=== PATIENT | female | born 1935 | race Caucasian/White ===

== ENCOUNTER 2019-06-16 18:43 | Emergency (ER) | payer MEDICARE, SELFPAY ==
[2019-06-16] VITALS (11 sets, daily range): BP systolic 90–143; BP diastolic 48–82; PULSE 27–107; RESP 16–25; TEMP 36.5–37.2; O2SAT 18–100
--- NOTE | ~2019-06-16 | CT_ITS ---
CORRECTED REPORT Description changed to CT cervical spine wo con [id number] EXAMINATION: CT cervical spine wo con DATE: 06/16/2019 19:29 INDICATION: Neck pain TECHNIQUE: Computed tomography (CT) of the cervical spine was performed without intravenous contrast. The dose-length product (DLP) was 139.12 mGy-cm. Automated exposure control and iterative reconstruction technique were employed. COMPARISON: 09/10/2018 FINDINGS: There is no fracture, dislocation, or subluxation. The vertebral body heights and alignment are normal. There is mild loss of intervertebral disc space height throughout the cervical spine. The odontoid is intact. The prevertebral soft tissues are normal. There is moderate multilevel facet osteoarthritis. IMPRESSION: 1. Mild cervical spondylosis without acute findings or significant interval change. Reviewed, dictated and finalized at location A. HEONETTE OPERATOR MTDD IMPRESSION: 1. Mild cervical spondylosis without acute findings or significant interval michele nge.
--- NOTE | ~2019-06-16 | CT_ITS ---
EXAMINATION: CT brain wo con INDICATION: Head injury COMPARISON: 09/23/2018 TECHNIQUE: Standard unenhanced head CT. The dose-length product (DLP) was 605.33 mGy-cm. The mA was a djusted according to patient size. Iterative reconstruction technique was employed. FINDINGS: There is no acute intraparenchymal hemorrhage. No evidence of mass lesion. No evidence of a cute infarction. There is mild periventricular and subcortical hypodensity probably related to small vessel ischemic disease. There is mild prominence of the sulci and ventricles related to cerebral atr ophy. Intracranial calcified cerebral atherosclerosis is noted. There are no extra-axial collections. There is no mass effect or midline shift. Changes in the globes are likely from ocular lens surgery. The visualized sinuses and mastoid air cells are well aerated. IMPRESSION: 1. No acute intracranial abnormality. 2. Age related findings. Reviewed, dictated and finalized at location A. VIDEO EDITOR
--- NOTE | 2019-06-16 19:00 | ED.FALL ---
HPI - Fall General Chief Complaint: Fall Stated Complaint: fall Time Seen by Provider: 06/16/19 18:51 Source: patient, family and other (ER nurse) Mode of arrival: EMS Limitations: dementia History of Present Illness HPI Narrative: The pt is an 84 y/o female who presents to the ED, via EMS, c/o a fall. Pt presents from [place]. Per ER nurse, pt tumbled in the dining room at her fpc, striking her head on the counter. ER nurse states that the pt was complaining of left-sided headache, left hand pain, and left shoulder pain. Pt's family states that the pt typically has a low heart rate, but typically in the 30s. They state that the pt takes Eliquis, Amlodipine, and Benazepril. 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 Duran at [facility]. Her family states that the pt has a PMHx of dementia. The HPI is limited due to the pt's dementia. complaint: fall Fall from: standing Place fall occurred: fpc/SNF Context: tripped/slipped Location of injury: head Location of injury - extremities: Left: shoulder Associated symptoms (after fall): headache (Left-sided) and other (Left shoulder pain, left hand pain) Related Data Home Medications Medication Instructions Recorded Confirmed alprazolam 0.25 mg tablet 0.25 mg PO BID 05/06/19 amlodipine 2.5 mg tablet 2.5 mg PO DAILY 05/06/19 apixaban 5 mg tablet 5 mg PO BID 05/06/19 benazepril 20 mg tablet 20 mg PO DAILY 05/06/19 levothyroxine 100 mcg tablet 100 mcg PO DAILY 05/06/19 sotalol 80 mg tablet 40 mg PO BID tablet 05/06/19 Allergies Allergy/AdvReac Type Severity Reaction Status Date / Time No Known Allergies Allergy Verified 05/06/19 11:05 Review of Systems Review of Systems: ROS unobtainable: other (ROS limited due to the pt's dementia. ) Musculoskeletal: Musculoskeletal: Reports other (Left shoulder pain, left hand pain) Neurologic: Reports headache(s) (left-sided) and Reports other (Head injury) [facility] Past Medical History Medical History (Updated 06/16/19 @ 21:15 by Nader Meredith MD) A-fib Actinic keratosis Angina at rest Arthritis Bilateral cataracts Dementia HLD (hyperlipidemia) HTN (hypertension) Hypothyroidism Myocardial infarction Tear of meniscus of left knee UTI (urinary tract infection) Vertigo Surgical History Surgical History (Updated 06/16/19 @ 19:13 by Imer Roblero) H/O bilateral cataract extraction H/O cardiac catheterization H/O: hysterectomy History of appendectomy History of cholecystectomy S/P right knee arthroscopy Family History Family History (Updated 05/06/19 @ 11:09 by Tangela Monzon RN) Mother Cerebrovascular accident Social History Social History (Updated 06/16/19 @ 19:16 by Imer Roblero) Smoking status: Former smoker Tobacco type: cigarettes Alcohol intake: never Living arrangements: assisted living Additional living arrangements comments: Pt lives at [place]. Comments PCP: Dr. Alamo Cardiology: Dr. Duran Exam Const: General: no acute distress and alert HENMT: Head: normal to inspection Eyes: Pupils: Equal, round and reactive pupils present Neck: Neck: normal visual inspection Chest: Chest palpation & inspection: normal inspection of the chest Resp: Effort & Inspection: normal respiratory effort Auscultation: clear to auscultation bilaterally : Other: bradycardia Skin: General skin exam: normal color Neuro: General: moves all extremities, no meningeal signs and no focal motor deficits Extrem: General: normal to inspection Course Course Emergency Course: As per Dr. Ocasio recommended to start IV dopamine once a started IV dopamine at 2.5 the heart rate initially went up to 53 and then later to 103. Patient still remains asymptomatic here. I discussed with Dr. Snider who accepted the patient in transfer to the floor. Consultations Consultation #1: Discussed case with Dr. Ocasio, who accepted transfer to [place]
--- NOTE | 2019-06-16 19:05 | ECG_ITS ---
Measurements Intervals [place] Rate: 28 P: OR: 0 QRS: 93 QRSD: 129 T: 118 QT: 562 QTc: 384 Interpretive Statements ATRIAL FLUTTER WITH SLOW VENTRICULAR RESPONSE RIGHT AXIS DEVIATION RIGHT BUNDLE BRANCH BLOCK T WAVE ABNORMALITY- CONSIDER ANTERIOR ISCHEMIA ABNORMAL ECG Electronically Signed On 06-16-2019 20:10:33 HIM TECH by aMrvel [place] D.O.
--- NOTE | 2019-06-16 19:07 | PC.NURSE ---
Dr Murry made aware of patient's HR. Family reports her HR is normally in the 30's, sees cardiology at [facility]. Patient asymptomatic.
[2019-06-16 19:21] LABS: Basophils Percent Auto 0.4 % (0.2-1.2); Eosinophils Absolute Auto 0.1 K/mm3 (0-0.3); Eosinophils Percent Auto 1.2 % (0-4.4); Hematocrit 39.1 % (37.0-47.0); Hemoglobin 12.3 g/dL (12.0-15.0); Immature Granulocyte Absolute 0.03 K/mm3 (0.00-0.031); Immature Granulocyte Percent A 0.4 % (0-0.5); Lymphocytes Absolute Auto 1.33 K/mm3 (0.9-3.2); Lymphocytes Percent Auto 18.4 % (18.3-44.2); Mean Corpuscular HGB Conc 31.5 g/dl (32-36); Mean Corpuscular Volume 92.2 fl (80-100); Mean Platelet Volume 10.4 fl (7.4-10.4); Monocytes Absolute Auto 0.5 K/mm3 (0.1-0.6); Monocytes Percent Auto 6.5 % (2.6-8.5); Neutrophils Absolute Auto 5.3 K/mm3 (1.3-6.7); Neutrophils Percent Auto 73.1 % (45.5-73.1); Platelet Count Result 259 k/mm3 (150-375); Red Blood Count 4.24 M/mm3 (4.2-5.4); Red Cell Distribution Width 13.2 % (11.5-14.5); White Blood Count 7.2 K/mm3 (4.5-10.0)
[2019-06-16 19:33] LABS: Alanine Aminotransferase 15 U/L (4-35); Albumin Level 3.6 g/dL (3.5-5.1); Alkaline Phosphatase 78 U/L (38-126); Aspartate Amino Transferase 23 U/L (14-36); Bilirubin,Total 0.9 mg/dL (0.2-1.3); Blood Urea Nitrogen 29 mg/dL (7-17); Calcium 8.8 mg/dL (8.4-10.2); Carbon Dioxide 28 mmol/L (22-30); Chloride 102 mmol/L (98-107); Estimated CRCL calculation 35 ml/min; Estimated Glomerular Filt Rate 53; Glucose 132 mg/dL (65-105); Potassium 4.2 mmol/L (3.4-5.0); Sodium 140 mmol/L (137-145)
[2019-06-16] MEDS: SODIUM CHLORIDE 0.9% IV 1,000 ML 125 ML IV CONT (19:37)
[2019-06-16 19:45] LABS: Troponin I 0.019 ng/mL (0.000-0.034)
[2019-06-16] MEDS: DOPamine 400 MG/D5W 250 ML 400 MG/250 ML BAG 13.1 MG IV CONT (20:06)
--- NOTE | 2019-06-16 20:06 | PC.NURSE ---
Dopamine initiated at 5mcg/kg per verbal order from Dr Murry.
--- NOTE | 2019-06-16 20:46 | PC.NURSE ---
Dopamine decreased to 2.5mcg/kg per verbal order from Dr Murry.
--- NOTE | 2019-06-16 21:41 | PC.NURSE ---
Addendum entered by Jeni Cee 06/16/19 22:57: Raquel called with updated ETA....approximately 0030 Addendum entered by Jeni Cee 06/16/19 22:43: Raquel called with updated ETA...approximately 2300 Original Note: Called [facility] to transport patient to [facility], Rm [id number]...ETA 0100
[2019-06-17 00:01] VITALS: BP 124/67; PULSE 85; RESP 20
[2019-06-17 00:16] VITALS: BP 151/80; PULSE 92; RESP 22
[2019-06-17 00:46] VITALS: BP 143/79; PULSE 90; RESP 20; TEMP 36.3
== END 2019-06-17 01:00 | disposition short-term general hospital (02) ==
PROVIDERS: Emergency Provider Family Medicine; PCP Internal Medicine
DX: S09.90XA Unspecified injury of head, initial encounter (principal); I48.91 Unspecified atrial fibrillation; Z79.01 Long term (current) use of anticoagulants; F03.90 Unspecified dementia, unspecified severity, without behavioral disturbance, psychotic disturbance, mood disturbance, and anxiety; Z87.891 Personal history of nicotine dependence; M19.90 Unspecified osteoarthritis, unspecified site; E78.5 Hyperlipidemia, unspecified; I10 Essential (primary) hypertension; I25.2 Old myocardial infarction; Z87.440 Personal history of urinary (tract) infections; Z98.42 Cataract extraction status, left eye; Z98.41 Cataract extraction status, right eye; E03.9 Hypothyroidism, unspecified; W01.198A Fall on same level from slipping, tripping and stumbling with subsequent striking against other object, initial encounter
CPT/HCPCS: 36415; 70450; 72125; 72126; 80053; 84484; 85025; 93005; 96361; 96365; 99285; J1265; J7030; L0140; Q9967

== ENCOUNTER 2020-05-15 16:45 | Emergency (ER) | payer MEDICARE, SELFPAY ==
--- NOTE | ~2020-05-15 | CT_ITS ---
EXAMINATION: CT brain wo con DATE: 05/15/2020 17:50 INDICATION: Altered mental status post fall TECHNIQUE: Computed tomography (CT) of the head was performed without intravenous contrast. Sagittal and coronal reconstructions were performed. The mA was adjusted according to patient size. Iterative reconstruction technique was employed. The dose-length product was 681.00 mGy-cm. COMPARISON: head CT dated 06/16/2019 FINDINGS: No acute intracranial hemorrhage, acute infarction or abnormal extra axial fluid collection. There is moderate scattered white matter hypoattenuation consistent with chronic small vessel ischemic diseas e. Symmetric prominence of the sulci and ventricles consistent with mild to moderate age-appropriate diffuse cerebral volume loss. No mass/mass effect. Mucosal thickening the right ethmoid sinus with mi nimal posterior layering fluid in the right maxillary and right sphenoid sinuses. Changes of bilatera l intraocular lens replacement. The orbits and mastoid air cells are normal. IMPRESSION: 1. No acute intracranial process. 2. Stable age-related changes including mild to moderate diffuse volume loss and moderate scattered w michelle matter hypoattenuation consistent with chronic small vessel ischemic disease. Reviewed, dictated and finalized at location A. S AND BLOW MACHINE TENDER IMPRESSION: 1. No acute intracranial process. 2. Stable age-related changes including mild to moderate diffuse volume loss an d moderate scattered white matter hypoattenuation consistent with chronic small vessel ischemic disease.
[2020-05-15 16:46] VITALS: BP 156/83; PULSE 71; RESP 19; TEMP 36.4; O2SAT 97
--- NOTE | 2020-05-15 17:18 | ED.FALL ---
HPI - Fall General Chief Complaint: Fall Stated Complaint: FALLS/AMS Time Seen by Provider: 05/15/20 17:06 Source: family Mode of arrival: EMS Limitations: altered mental status and dementia History of Present Illness HPI Narrative: An 85-year-old woman presents to the emergency department with complaints of a fall in the skilled nursing. Patient is very demented at baseline unable to provide any meaningful history. Her son is present states that he was told she had a fall, noted that the skilled nursing thought she may have had a urinary tract infection and sent her in here for further evaluation. He does not know the details of the fall. He states that she has not been complaining of any pain to him. He does note that her dementia is advanced enough that she only occasionally recognizes him. Related Data Home Medications Medication Instructions Recorded Confirmed alprazolam 0.25 mg tablet 0.25 mg PO BID 05/06/19 amlodipine 2.5 mg tablet 2.5 mg PO DAILY 05/06/19 apixaban 5 mg tablet 5 mg PO BID 05/06/19 benazepril 20 mg tablet 20 mg PO DAILY 05/06/19 levothyroxine 100 mcg tablet 100 mcg PO DAILY 05/06/19 sotalol 80 mg tablet 40 mg PO BID tablet 05/06/19 acetaminophen 06/16/19 cholecalciferol (vitamin D3) 2,000 unit PO DAILY 06/16/19 cyanocobalamin (vitamin B-12) 1,000 mcg PO EVERY OTHER DAY 06/16/19 [Vitamin B-12] memantine mg 06/16/19 nitroglycerin mg 06/16/19 Allergies Allergy/AdvReac Type Severity Reaction Status Date / Time No Known Allergies Allergy Verified 06/16/19 22:04 Review of Systems Review of Systems: ROS unobtainable: Yes unobtainable due to mental status (Advanced dementia) [facility] Past Medical History Medical History A-fib Actinic keratosis Angina at rest Arthritis Bilateral cataracts Dementia HLD (hyperlipidemia) HTN (hypertension) Hypothyroidism Myocardial infarction Tear of meniscus of left knee UTI (urinary tract infection) Vertigo Surgical History Surgical History H/O bilateral cataract extraction H/O cardiac catheterization H/O: hysterectomy History of appendectomy History of cholecystectomy S/P right knee arthroscopy Family History Family History Mother Cerebrovascular accident Social History Social History Smoking status: Former smoker Tobacco type: cigarettes Alcohol intake: never Additional living arrangements comments: Pt lives at [place]. Exam Narrative: Exam Narrative: GENERAL: Well-appearing, well-nourished, and in no acute distress. Pleasantly confused. HEAD: Normocephalic, atraumatic. EYES: PERRLA and EOMI. ENT: Nares clear, no rhinorrhea or epistaxis. Mucous membranes moist. Oropharynx without tonsillar hypertrophy exudate or other lesions. Bilateral TMs pearly bennett nonbulging NECK: Supple. No adenopathy or masses. No carotid bruits or JVD CHEST: Clear to auscultation. No respiratory distress. No wheezes rales or rhonchi HEART: Regular rate and rhythm. No murmur heard. Normal peripheral pulses. ABDOMEN: Soft, nontender, nondistended, normal active bowel sounds. EXTREMITIES: Normal range of motion. No edema. SKIN: Warm, dry, no rash. NEURO: No focal deficits. Alert and oriented x0. PSYCH: Normal mood and affect. Course Reevaluation(s) Reevaluation #1: Patient still at baseline, no change in her dementia. Updated the patient's son to patient's work-up. I do feel that she may be having signs of a developing UTI, will go ahead and treat empirically. Patient's head CT was reviewed and normal. Date: 05/15/20 Time: 18:57 Vital Signs Vital signs: Vital Signs Temperature 36.4 C L 05/15/20 16:46 Pulse Rate 71 05/15/20 16:46 Respiratory Rate 19 05/15/20 16:46 Blood Pressure 156/83 H 05/15/20 16:46 Pulse Oximetr
[2020-05-15 17:24] LABS: Glucose Point of Care 93 (65-105)
[2020-05-15 17:34] LABS: Add Urine Microscopic? YES; Appearance Urine Clear (Clear); Bilirubin Urine Negative (Negative); Blood Urine Negative (Negative); Color Urine Yellow (Yellow); Glucose Urine UA Negative (Negative); Ketones Urine Trace mg/dL (Negative); Leukocyte Esterase Ur Trace LEU/UL (Negative); Mucus Urine Rare /lpf; Nitrate Urine Negative (Negative); Protein Urine 2+ mg/dL (Negative); Specific Grav Ur 1.021 (1.001-1.035); Squamous Epithelial Cell Urine Few /hpf (Few)
[2020-05-15] MEDS: CEPHALEXIN 500 MG CAPSULE PO (19:12)
[2020-05-15 19:44] VITALS: BP 129/70; PULSE 76; RESP 16; TEMP 36.7; O2SAT 100
== END 2020-05-15 19:47 ==
PROVIDERS: Emergency Medicine; Emergency Provider Emergency Medicine; PCP Internal Medicine
DX: N30.00 Acute cystitis without hematuria (principal); F03.90 Unspecified dementia, unspecified severity, without behavioral disturbance, psychotic disturbance, mood disturbance, and anxiety; Z87.891 Personal history of nicotine dependence; Z98.42 Cataract extraction status, left eye; Z98.41 Cataract extraction status, right eye; I48.91 Unspecified atrial fibrillation; M19.90 Unspecified osteoarthritis, unspecified site; E78.5 Hyperlipidemia, unspecified; I10 Essential (primary) hypertension; E03.9 Hypothyroidism, unspecified; I25.2 Old myocardial infarction; Z79.01 Long term (current) use of anticoagulants; W19.XXXA Unspecified fall, initial encounter
CPT/HCPCS: 51701; 70450; 81001; 82948; 99284; A9270

== ENCOUNTER 2020-05-29 12:36 | Emergency (ER) | payer OTHER, MEDICARE, SELFPAY ==
--- NOTE | ~2020-05-29 | CT_ITS ---
EXAMINATION: CT brain wo con DATE: 05/29/2020 13:09 INDICATION: Unwitnessed fall with facial trauma TECHNIQUE: Computed tomography (CT) of the head was performed without intravenous contrast. Sagittal and coronal reconstructions were performed. The mA was adjusted according to patient size. Iterative reconstruction technique was employed. The dose-length product was 605.33 mGy-cm. COMPARISON: head CT dated 05/15/2020 FINDINGS: Bilateral nasal bone fractures, mildly comminuted on the right, with approximately 3-4 mm left latera l displacement on both the left and right. No calvarial fracture. No acute intracranial hemorrhage, a cute infarction or abnormal extra axial fluid collection. There is moderate scattered white matter hy poattenuation consistent with chronic small vessel ischemic disease. Symmetric prominence of the sulc i and ventricles consistent with mild age-appropriate diffuse cerebral volume loss. No mass/mass effe ct. Changes of bilateral intraocular lens replacement. The orbits and mastoid air cells are normal. M ucosal thickening in the bilateral ethmoid sinuses, mild on the left and moderate on the right. Intra cranial calcified cerebral atherosclerosis is noted. IMPRESSION: 1. Left laterally displaced bilateral nasal bone fractures. 2. No calvarial fracture or acute intracranial process. 3. Stable age-related changes including mild diffuse volume loss and moderate scattered white matter hypoattenuation consistent with chronic small vessel ischemic disease. Reviewed, dictated and finalized at location B. DRIVER IMPRESSION: 1. Left laterally displaced bilateral nasal bone fractures. 2. No calvarial fracture or acute intracranial process. 3. Stable age-related changes including mild diffuse volume loss and moderate s cattered white matter hypoattenuation consistent with chronic small vessel isch emic disease.
--- NOTE | ~2020-05-29 | CT_ITS ---
EXAMINATION: CT facial & cervical spine wo EXAM DATE: 05/29/2020 13:09 INDICATION: Head injury. Facial trauma. TECHNIQUE: Spiral CT of the facial bones was acquired in the axial plane. Coronal reformatted images were also reviewed. Spiral CT of the cervical spine was performed without contrast. Axial images we re reviewed. Coronal and sagittal reformatted images were also reviewed. The dose-length product (DL P) for this examination was 118.54 mGy-cm. The exposure was tailored according to patient size, and iterative reconstruction (ASIR) was used as additional dose reduction technique. Comparison is made t o prior examination from 06/16/2019. FINDINGS: FACIAL CT: Acute closed posttraumatic bilateral nasal bone fractures with leftward displacement. The re is nasal septal fracture anteriorly. Small amount of ethmoid blood. The orbits, globes and extrao cular muscles are unremarkable. Bilateral cataract surgery. Mild right maxillary sinus mucoperiosteal thickening. CERVICAL CT: There is no evidence of acute cervical fracture. The odontoid process is intact. Pre-d ens space is normal. Prevertebral soft tissue is normal. There are no soft tissue abnormalities halle ntified. There is no disc space widening or traumatic vertebral body subluxation suspected. Vertebr al body and disc heights are well-maintained. There is some advanced upper cervical facet arthropathy . There is mild cervical disc disease. A detailed level by level evaluation of spondylosis can be add ed as addendum if requested. IMPRESSION: 1. Acute bilateral nasal bone fractures with leftward displacement. 2. Nondisplaced nasal septal fracture. 3. No acute cervical findings. Reviewed, dictated and finalized at location A. INE PRINTER
--- NOTE | ~2020-05-29 | XR_ITS ---
EXAMINATION: XR chest 1V DATE: 05/29/2020 13:20 INDICATION: Fall. TECHNIQUE: A single frontal view of the chest was obtained. COMPARISON: Chest single view 09/23/2018 FINDINGS: There is mild atelectasis in lingula. No pleural effusion or pneumothorax. Cardiomegaly is noted. There is an implanted electronic device in left chest wall. Surgical clips in the right upper quadrant are likely from cholecystectomy. There is an old healed fracture of right eighth rib. IMPRESSION: 1. Mild atelectasis in lingula. 2. Cardiomegaly. Reviewed, dictated and finalized at location A. TED CIRCUIT BOARDS INSPECTOR
--- NOTE | ~2020-05-29 | XR_ITS ---
EXAMINATION: XR hip LT 2V w AP pelvis EXAM DATE: 05/29/2020 13:20 INDICATION: Initial encounter following injury, with pain of the pelvis, left hip. TECHNIQUE: Left hip frontal, 'frog leg' projections for interpretation. Frontal projection pelvis. There is no prior study for comparison. FINDINGS: Smooth left hip femoral head contour, no radiographic evidence of avascular necrosis. Ther e is moderate bilateral hip primary osteoarthritis. There are no acute fractures or dislocations halle ntified. There is no subcutaneous gas. There are arterial calcifications, arteriosclerosis. There are no radiopaque foreign bodies. IMPRESSION: No acute osseous findings. Reviewed, dictated and finalized at location A. T CAKE CUTTER IMPRESSION: No acute osseous findings.
[2020-05-29 12:41] VITALS: BP 146/73; PULSE 68; RESP 16; TEMP 36.7; O2SAT 99
--- NOTE | 2020-05-29 12:55 | ED.GENADULT ---
HPI - General Adult General Chief complaint: Head Injury Stated complaint: fall Time Seen by Provider: 05/29/20 12:39 Source: RN notes reviewed History of Present Illness HPI narrative: Patient presents to emergency department from [facility] via EMS for a fall. Patient was found on the floor with a chair on top of her with an unwitnessed fall. Per staff patient also fell last night. The patient is currently on hospice from a recent Covid diagnosis but has recovered from the Covid at this time and family is unsure if she is going to be staying on hospice. Patient notes some facial pain with mild blood from the nares and swelling over the nasal bridge she denies any other complaints at this time does not recall the episodes of the fall does have a history of dementia Related Data Home Medications Medication Instructions Recorded Confirmed alprazolam 0.25 mg tablet 0.25 mg PO BID 05/06/19 apixaban 5 mg tablet 5 mg PO BID 05/06/19 levothyroxine 100 mcg tablet 100 mcg PO DAILY 05/06/19 acetaminophen 06/16/19 cholecalciferol (vitamin D3) 2,000 unit PO DAILY 06/16/19 memantine mg 06/16/19 nitroglycerin mg 06/16/19 bisacodyl mg WI 05/29/20 buspirone mg 05/29/20 divalproex [Depakote] PO 05/29/20 docusate sodium [Colace] PO 05/29/20 hyoscyamine sulfate mg 05/29/20 lorazepam 05/29/20 metoprolol tartrate 05/29/20 morphine concentrate 05/29/20 Allergies Allergy/AdvReac Type Severity Reaction Status Date / Time hydrocodone Allergy Unknown Verified 05/29/20 13:08 Review of Systems Review of Systems: Narrative: Gen.: Denies fevers or chills Eyes: Denies eye pain or visual change ENT: Denies congestion Respiratory: Denies shortness of breath or cough CV: Denies chest pain or palpitations GI: Denies abdominal pain nausea, emesis or diarrhea Musculoskeletal: See HPI Neuro: Denies numbness, tingling, weakness or focal weakness Skin: Denies rash Except as documented, all other systems reviewed and negative PMFSH Past Medical History Medical History A-fib Actinic keratosis Angina at rest Arthritis Bilateral cataracts Dementia HLD (hyperlipidemia) HTN (hypertension) Hypothyroidism Myocardial infarction Tear of meniscus of left knee UTI (urinary tract infection) Vertigo Surgical History Surgical History H/O bilateral cataract extraction H/O cardiac catheterization H/O: hysterectomy History of appendectomy History of cholecystectomy S/P right knee arthroscopy Family History Family History Mother Cerebrovascular accident Social History Social History Smoking status: Former smoker Tobacco type: cigarettes Alcohol intake: never Additional living arrangements comments: Pt lives at [place]. Exam Narrative: Exam Narrative: APPEARANCE: No acute distress, nontoxic, resting in bed EYES: EOMI HEENT: Normocephalic, atraumatic, swelling and ecchymosis over the nasal bridge small amount of epistaxis in the bilateral naris oromucosa moist full range of motion of the jaw Neck: C-collar present no midline tenderness palpation RESPIRATORY: No respiratory distress Clear to auscultation bilaterally with no rhonchi wheezing or rales. CARDIOVASCULAR: Regular rate and rhythm without murmurs rubs or gallops. ABDOMINAL: Soft, nontender, nondistended, no rebound or guarding MUSCULOSKELETAl: Moves all extremities. No clubbing, cyanosis or edema. Tender to palpation of the left lateral hip with swelling ecchymosis present no tenderness of the left knee or ankle, pain with flexion of the left hip greater than 45 degrees, bilateral dorsalis pedis pulse 2+ no tenderness of the bilateral upper extremities in the right lower extremity NEURO: Awake and alert x 1. Following commands, speech normal, no focal defic
--- NOTE | 2020-05-29 13:04 | PC.NURSE ---
Per EMS report: pt fell X3 last night. Noted bruising to left knee, left elbow, and left hip. Noted swollen area approx size baseball left hip area.
[2020-05-29 13:59] LABS: Basophils Percent Auto 0.2 % (0.2-1.2); Eosinophils Percent Auto 0.4 % (0-4.4); Hematocrit 35.6 % (37.0-47.0); Hemoglobin 11.5 g/dL (12.0-15.0); Immature Granulocyte Absolute 0.05 K/mm3 (0.00-0.031); Immature Granulocyte Percent A 0.5 % (0-0.5); Lymphocytes Absolute Auto 0.73 K/mm3 (0.9-3.2); Lymphocytes Percent Auto 7.3 % (18.3-44.2); Mean Corpuscular HGB Conc 32.3 g/dl (32-36); Mean Corpuscular Hemoglobin 29.4 pg (26-34); Mean Platelet Volume 10.4 fl (7.4-10.4); Monocytes Absolute Auto 0.8 K/mm3 (0.1-0.6); Monocytes Percent Auto 7.9 % (2.6-8.5); Neutrophils Absolute Auto 8.3 K/mm3 (1.3-6.7); Neutrophils Percent Auto 83.7 % (45.5-73.1); Platelet Count Result 362 k/mm3 (150-375); Red Blood Count 3.91 M/mm3 (4.2-5.4); Red Cell Distribution Width 12.7 % (11.5-14.5)
[2020-05-29 14:05] LABS: Add Urine Microscopic? YES; Appearance Urine Clear (Clear); Bacteria Urine Trace /hpf; Bilirubin Urine Negative (Negative); Blood Urine Negative (Negative); Color Urine Yellow (Yellow); Glucose Urine UA Negative (Negative); Hyaline Casts Urine 30-49 /lpf; Ketones Urine Negative (Negative); Leukocyte Esterase Ur Negative LEU/UL (Negative); Mucus Urine Heavy /lpf; Nitrate Urine Negative (Negative); Protein Urine 2+ mg/dL (Negative); RBC Urine 0-2 /hpf (0-2); Specific Grav Ur 1.019 (1.001-1.035); Squamous Epithelial Cell Urine Moderate /hpf (Few); Urobilinogen Urine Negative mg/dL (<2.0); WBC Urine 0-3 /hpf
[2020-05-29 14:11] LABS: Alanine Aminotransferase 15 U/L (4-35); Albumin Level 3.3 g/dL (3.5-5.1); Alkaline Phosphatase 54 U/L (38-126); Anion Gap 6 mmol/L (8-16); Aspartate Amino Transferase 29 U/L (14-36); Bilirubin,Total 1.1 mg/dL (0.2-1.3); Blood Urea Nitrogen 38 mg/dL (7-17); Calcium 8.4 mg/dL (8.4-10.2); Carbon Dioxide 35 mmol/L (22-30); Chloride 99 mmol/L (98-107); Estimated CRCL calculation 20 ml/min; Estimated Glomerular Filt Rate 33; Glucose 110 mg/dL (65-105); Potassium 3.7 mmol/L (3.4-5.0); Sodium 140 mmol/L (137-145)
[2020-05-29 14:19] LABS: INR 1.3; Prothrombin Time 17.1 Seconds (11.1-14.7)
[2020-05-29 14:20] LABS: Partial Thromboplastin Time 29.9 SECONDS (22.3-36.8)
[2020-05-29 14:30] VITALS: BP 138/76; PULSE 72; RESP 16; O2SAT 98
[2020-05-29] MEDS: SODIUM CHLORIDE 0.9% IV 1,000 ML 999 ML IV CONT (14:46)
--- NOTE | 2020-05-29 15:18 | PC.NURSE ---
Seth from [facility] called for update on patient.
--- NOTE | 2020-05-29 15:44 | PC.NURSE ---
called alvin to tranfer patient to [facility] [place] eta [id number]
--- NOTE | 2020-05-29 18:45 | PC.NURSE ---
i made contact with [facility] to get a new eta. eta 1829. I called again to get another eta and it is now 2129
--- NOTE | 2020-05-29 18:47 | PC.NURSE ---
[facility], [facility], and [facility] declined transportation due to shortage of trucks.
--- NOTE | 2020-05-29 18:51 | PC.NURSE ---
Addendum entered by Radha Venegas 05/29/20 18:53: and [facility] was called to cancel trip Original Note: i was just updated that patients son will be taking her home
--- NOTE | 2020-05-29 19:05 | PC.NURSE ---
1630-called Raquel in regards to update on ride back to senior living. EST time changed to 183. Family updated.
--- NOTE | 2020-05-29 19:07 | PC.NURSE ---
1829- called [facility] for status update for transporting patient back to group home. Est time moved to 2129. Updated family. Son became upset and wanted to transport patient back to group home himself. Discharged with son. Pt placed in son's car.
== END 2020-05-29 19:12 ==
PROVIDERS: Emergency Provider Emergency Medicine; PCP Nurse Practitioner Family
DX: S02.2XXA Fracture of nasal bones, initial encounter for closed fracture (principal); S70.02XA Contusion of left hip, initial encounter; Z86.16 Personal history of COVID-19; I48.91 Unspecified atrial fibrillation; M19.90 Unspecified osteoarthritis, unspecified site; F03.90 Unspecified dementia, unspecified severity, without behavioral disturbance, psychotic disturbance, mood disturbance, and anxiety; I10 Essential (primary) hypertension; E78.5 Hyperlipidemia, unspecified; E03.9 Hypothyroidism, unspecified; I25.2 Old myocardial infarction; Z87.440 Personal history of urinary (tract) infections; Z98.42 Cataract extraction status, left eye; Z98.41 Cataract extraction status, right eye; Z79.01 Long term (current) use of anticoagulants; Z87.891 Personal history of nicotine dependence; I51.7 Cardiomegaly; R91.8 Other nonspecific abnormal finding of lung field; W19.XXXA Unspecified fall, initial encounter
CPT/HCPCS: 36415; 70450; 70486; 71045; 72125; 73502; 80053; 81001; 85025; 85610; 85730; 96360; 99284; J7030

== ENCOUNTER 2020-07-22 13:43 | HOS | payer OTHER, SELFPAY ==
[2020-07-22] VITALS (11 sets, daily range): BP systolic 111–154; BP diastolic 47–79; PULSE 40–65; RESP 12–22; TEMP 35.8–36.6; O2SAT 90–100
--- NOTE | 2020-07-22 14:05 | ED.GENADULT ---
HPI - General Adult General Chief complaint: Cardiac Arrest/CPR Stated complaint: AMS History of Present Illness HPI narrative: Patient is an 85-year-old female who presents to the ER status post cardiac arrest. [facility] was at [facility] when she became unresponsive. Apparently the people who work there did not know that she was on hospice and did not know that she was a DNR so CPR was started. After 5 minutes of CPR the patient had return of spontaneous circulation. Patient was being bagged by EMS but then was breathing on her own by arrival to the ER. Patient is responsive to pain only and breathing on her own. Related Data Home Medications Medication Instructions Recorded Confirmed alprazolam 0.25 mg tablet 0.25 mg PO BID 05/06/19 apixaban 5 mg tablet 5 mg PO BID 05/06/19 levothyroxine 100 mcg tablet 100 mcg PO DAILY 05/06/19 acetaminophen 06/16/19 cholecalciferol (vitamin D3) 2,000 unit PO DAILY 06/16/19 memantine mg 06/16/19 nitroglycerin mg 06/16/19 bisacodyl mg WI 05/29/20 buspirone mg 05/29/20 divalproex [Depakote] PO 05/29/20 docusate sodium [Colace] PO 05/29/20 hyoscyamine sulfate mg 05/29/20 lorazepam 05/29/20 metoprolol tartrate 05/29/20 morphine concentrate 05/29/20 Allergies Allergy/AdvReac Type Severity Reaction Status Date / Time hydrocodone Allergy Unknown Verified 07/22/20 15:36 Review of Systems Review of Systems: ROS unobtainable: Yes unobtainable due to mental status PMFSH Past Medical History Medical History A-fib Actinic keratosis Angina at rest Arthritis Bilateral cataracts Dementia HLD (hyperlipidemia) HTN (hypertension) Hypothyroidism Myocardial infarction Tear of meniscus of left knee UTI (urinary tract infection) Vertigo Surgical History Surgical History H/O bilateral cataract extraction H/O cardiac catheterization H/O: hysterectomy History of appendectomy History of cholecystectomy S/P right knee arthroscopy Family History Family History Mother Cerebrovascular accident Social History Social History Smoking status: Former smoker Tobacco type: cigarettes Alcohol intake: never Additional living arrangements comments: Pt lives at [place]. Exam Narrative: Exam Narrative: GENERAL: Chronically ill-appearing, frail, and in no acute distress. HEAD: Normocephalic, atraumatic. EYES: PERRL. ENT: Dry mucous membranes. CHEST: Clear to auscultation. No respiratory distress. HEART: Bradycardic and regular. Normal peripheral pulses. ABDOMEN: Soft, soft nontender, nondistended. EXTREMITIES: Normal range of motion. No edema. SKIN: Warm, dry, no rash. NEURO: Localizes the pain. Does not open her eyes spontaneously or to pain. Nonverbal. Course Course Emergency Course: Patient being admitted to general inpatient with hospice eating in the care. Patient be started on morphine drip. Vital Signs Vital signs: Vital Signs Temperature 97.1 F L 07/22/20 13:41 Pulse Rate 65 07/22/20 13:41 Respiratory Rate 16 07/22/20 13:41 Blood Pressure 132/55 L 07/22/20 13:41 Pulse Oximetry 99 07/22/20 13:41 Temperature 97.0 F L 07/22/20 15:01 Pulse Rate 59 L 07/22/20 15:01 Respiratory Rate 14 07/22/20 15:01 Blood Pressure 154/67 H 07/22/20 15:01 Pulse Oximetry 100 07/22/20 15:01 Medical Decision Making Vital Signs Vital Signs: Vital Signs Temperature 97.1 F L 07/22/20 13:41 Pulse Rate 65 07/22/20 13:41 Respiratory Rate 16 07/22/20 13:41 Blood Pressure 132/55 L 07/22/20 13:41 Pulse Oximetry 99 07/22/20 13:41 Temperature 97.0 F L 07/22/20 15:01 Pulse Rate 59 L 07/22/20 15:01 Respiratory Rate 14 07/22/20 15:01 Blood Pressure 154/67 H 07/22/20 15:01 Pulse Oxi
--- NOTE | 2020-07-22 15:11 | ECG_ITS ---
Measurements Intervals [place] Rate: 61 P: FL: 0 QRS: 60 QRSD: 93 T: -27 QT: 463 QTc: 468 Interpretive Statements SINUS BRADYCARDIA VENTRICULAR COUPLETS AND VENTRICULAR PREMATURE COMPLEXES ST-T WAVE ABNORMALITY IN ANTEROLATERAL LEADS- CONSIDER ISCHEMIA BASELINE ARTIFACT- I, III, AVR, AVL, AVF, V1-V6 ABNORMAL ECG Electronically Signed On 07-23-2020 7:28:34 CDT by Marvel [place] D.O.
[2020-07-22] MEDS: MORPHINE SULFATE INJ (*CRX) 50 MG in SODIUM CHLORIDE 0.9% IV 95 ML IV CONT (15:44)
--- OUTSIDE RECORDS SUMMARY | 2020-07-22 15:59 | XMS_ITS ---
:1935 Author Care Team Providers Name Role Phone KELLEY JOHNSON MD Artificial Breeding Technician [phone] [facility] OTHER [phone] 2 Allergies Code Code System Name Reaction Severity Status Onset Panlor ? ? Active ? (Hydrocodone-ryanne tamin) 5489 RxNorm Hydrocodone ? ? Deactivated ? Medications Name Status Start Date Stop Date ? ? acetaminophen 650 mg rectal suppository Active ? Not available alprazolam 0.25 mg tablet Active ? Not av ailable amlodipine 2.5 mg tablet Completed ? 020 amoxicillin 500 mg capsule Completed ? 03/28 benazepril 10 mg tablet Completed ? 04/13/20 20 Take 1 tablet every day by oral route in the evening for 28 day s. benazepril 20 mg tablet Completed ? 04/13/20 20 Take 1 tablet every day by oral route in the morning for 28 day s. bisacodyl 10 mg rectal suppository Active ? Not available buspirone 5 mg tablet Completed ? 06/01/2020 cholecalciferol (vitamin D3) 50 mcg (2,000 unit) tablet Complete d ? 05/18/2020 Take 1 tablet every day by oral route. ciprofloxacin 250 mg tablet Completed ? 03/06 ciprofloxacin 500 mg tablet Completed ? 08/2020 divalproex 125 mg capsule,delayed Active ? Not available release sprinkle divalproex 250 mg tablet,delayed release Completed ? 04/19/2020 Take 1 tablet every day by oral route in the evening for 90 day s.
--- OUTSIDE RECORDS SUMMARY | 2020-07-22 15:59 | XMS_ITS | Encounter Summary ---
:1935 Author Care Team Providers Name Role Phone John Duran MD Real Estate Underwriter [phone] [place] [facility] [place] OTHER [phone] Reason for Visit Follow Up Assessment and Plan Assessment Note Medication Changes Crush medications for better medication administration. Signs and symptoms of when to seek furth er care reviewed with patient. Patient to follow up with primary care provider or return to clinic for any worsening signs and symptoms. Always present to ER or U rgent Care with any progression of/alarm ing symptoms, significant changes in symptoms or any concerning or urgent matters. Patient verbalized agreement and understanding of treatment plan. F/U 4 weeks, sooner if needed 1. Essential hypertension Please eat a low salt, low cho lesterol diet. Please exercise regularly and maintain a healthy body weight. Please take your blood pressure medication as prescribed. 2. Hypothyroidism Counseled patient that Hypothy roidism is when you do not make enough thyroid hormone. Common signs & symptoms of low levels of thyroid hormone include but are not limited to: tired, getting cold easily, coarse or thin hair, constipation, shortness of breath, swelling, irregular periods. Please take your thyroid medicine as directed by your doctor & on empty st omach. Levels will be monitored regularly. 3. Atrial fibrillation AFIB stable. Rate controlled. Continue anticoagulation. Discussion Note: None recorded.Patient educational handouts: No information available. Plan of Care Reminders Provider
--- OUTSIDE RECORDS SUMMARY | 2020-07-22 15:59 | XMS_ITS | Encounter Summary ---
:1935 Author Care Team Providers Name Role Phone John Duran MD Insulation Engineman [phone] [place] [facility] [place] OTHER [phone] Reason for Visit Follow Up Assessment and Plan Assessment Note Medication Changes Labs ordered to check levels. Will check kidneys to determine if Eliqu is dosing needs to be changed as well. Signs and symptoms of when to seek [...] weeks, sooner if needed 1. Essential hypertension ? CMP, serum or plasma ? magnesium, blood ? CBC 2. Hypothyroidism ? TSH + free T4, serum 3. SARS-CoV-2 Not on cocktail, but has been doing better than anticipated. 4. Urinary tract infectious dise ase Started on Cipro. Has been doi ng better. Discussion Note: None recorded.Patient educational handouts: No information available. Plan of Care Reminders Provider Appointments Follow up Shreyas Hodges, Yuniel 08/16/2020 PARTS COUNTERMAN, S 9:45AM ? Follow up Niki Butler, 15
--- OUTSIDE RECORDS SUMMARY | 2020-07-22 15:59 | XMS_ITS | Encounter Summary ---
:1935 Author Care Team Providers Name Role Phone John Duran MD Side Door Man [phone] [place] [facility] [place] OTHER [phone] 2 Reason for Visit Follow Up Assessment and Plan Assessment Note Medication Changes D/C Morphine D/C Bisacodyl D/C Hyoscyamine D/C Lorazepam D/C Zofran Faxed d/c medications to [facility]. Labs ordered to check levels and sent to [facility]. Will check kidneys to determine if Eliqu is dosing needs to be changed as well. Patient has not been improving since wor d[facility]ie with therapy. She continues to unfortunately decline. She has unfortunately no progress of improvement. She was discharged from hospice as son wanted therapy to help get better. Unfortunately maribell monge is not improving, but requiring more assistance with ADLs and therapy is having to provide more assistance and thus not seeing improvement. Unfortunately maribell monge is significantly poor prognosis with no improvement. Patient would be more appropriate for hospice services to make her comfortable. Call was placed to son which a was left requesting a return lalito l. Discussed with son regarding Kevin' s status. Discussed hospice being appropriate. He is going to talk with his brother and let this office know the outcome and what direction they want to go. Signs and symptoms of [facility] reviewed with patient. Patient to [...]
--- NOTE | 2020-07-22 16:07 | PM.IMHP ---
H&P: HPI History of Present Illness Date/Time: 07/22/20 16:07 Patient is a 85 y/o female who has a history of end stage dementia, afib, hypothyroidism, CAD with hx of [place], and HTN who is currently on hospice who presented to the ER for cardiac arrest. According to the ER documentation, the patient was found unresponsive and the facility called EMS and CPR was done. She has ROSC although she was a DNR unfortunately. Pt is unable to provide any history. Family at bedside was not there during this event but saw her yesterday and states she was 'not doing well' and the facility thought she maybe had a UTI. No other information was provided. Family states she is on hospice due to long standing dementia. They do not want any further work up or treatment other than pain control. Chief Complaint: Cardiac Arrest Review of Systems Review of Systems: All systems reviewed & are unremarkable except as noted in HPI and below PMFSH Past Medical History Medical History A-fib Actinic keratosis Angina at rest Arthritis Bilateral cataracts Dementia HLD (hyperlipidemia) HTN (hypertension) Hypothyroidism Myocardial infarction Tear of meniscus of left knee UTI (urinary tract infection) Vertigo Surgical History Surgical History H/O bilateral cataract extraction H/O cardiac catheterization H/O: hysterectomy History of appendectomy History of cholecystectomy S/P right knee arthroscopy Family History Family History Mother Cerebrovascular accident Social History Social History (Updated 07/22/20 @ 19:43 by Daniela Chan PA-C) Social History: Pt is a DNR on hospice. She lives in assisted living. EMR shows she is a former smoker Smoking status: Former smoker Tobacco type: cigarettes Alcohol intake: never Substance use: never Additional living arrangements comments: Pt lives at [place]. Gender identity (if verbalized by the patient): Female Sexual Orientation (if Verbalized by the Patient): Straight or Heterosexual Spiritual care concerns: No Meds Home Medications and Allergies Home Medications Medication Instructions Recorded Confirmed Type alprazolam 0.25 mg tablet 0.25 mg PO BID 05/06/19 07/22/20 History apixaban 5 mg tablet 5 mg PO BID 05/06/19 07/22/20 History levothyroxine 100 mcg tablet 112 mcg PO DAILY 05/06/19 07/22/20 History memantine mg 06/16/19 History bisacodyl 1 mg MO DAILY PRN 05/29/20 07/22/20 History divalproex [Depakote] 125 mg PO DAILY 05/29/20 07/22/20 History docusate sodium [Colace] 100 mg PO BID PRN 05/29/20 07/22/20 History hyoscyamine sulfate 0.125 mg SUBLINGUAL Q4H PRN 05/29/20 07/22/20 History lorazepam 0.5 mg PO Q4H PRN 05/29/20 07/22/20 History metoprolol tartrate 37.5 mg PO BID 05/29/20 07/22/20 History morphine concentrate 5 mg PO Q4H PRN 05/29/20 07/22/20 History acetaminophen 650 mg RECTAL Q6H PRN 07/22/20 07/22/20 History ciprofloxacin 500 mg PO BID 07/22/20 07/22/20 History ondansetron HCl 4 mg PO Q6H PRN 07/22/20 07/22/20 History sennosides-docusate sodium 1 tab-cap PO BID 07/22/20 07/22/20 History [Senna-S] valsartan 80 mg PO DAILY 07/22/20 07/22/20 History Allergies Allergy/AdvReac Type Severity Reaction Status Date / Time hydrocodone Allergy Unknown Verified 07/22/20 15:36 Vital Signs Vital Signs - 24 hr 07/22/20 13:41 07/22/20 13:50 07/22/20 14:01 Temperature 97.1 F L Pulse Rate 65 59 L 59 L Respiratory Rate 16 15 Blood Pressure 132/55 L 121/71 Pulse Oximetry 99 97 07/22/20 14:16 07/22/20 14:46 07/22/20 15:01 Temperature 97.0 F L Pulse Rate 46 L 56 L 59 L Respiratory Rate 17 16 14 Blood Pressure 126/57 L 154/60 H 154/67 H Pulse Oximetry 100 100 100 Exam Narrative: Exam Narrative: General:elderly pt resting in the bed responsive to pain only HEENT: normocephali
--- NOTE | 2020-07-22 16:30 | PC.NURSE ---
This patient, Kevin Benton, was admitted to 3 [facility] Surg Room 333-01. Patient/family oriented to hospital policies and general routines including ID bracelet, bed and alarms, visiting hours, pain management, procedures, bathroom and other care routines, personal items, smoking policy, room service/diet, and visiting hours. Information on how to activate the Rapid Response Team has been discussed. Patient/Family are encouraged to report perceived risks to care and to ask questions if they do not understand what they are told or what they should do.
[2020-07-22] MEDS: LORazepam INJ (*CRX) 2 MG/ML VIAL 0.5 MG IV PUSH (18:01)
[2020-07-23 03:35] VITALS: PULSE 55; O2SAT 98
[2020-07-23 04:00] VITALS: PULSE 55; RESP 12; O2SAT 90
[2020-07-23 07:45] VITALS: O2SAT 90
[2020-07-23] MEDS: LORazepam INJ (*CRX) 2 MG/ML VIAL 0.5 MG IV PUSH ×2 (08:48→16:39)
--- NOTE | 2020-07-23 10:32 | PM.IMPN ---
Progress Note: A&P Assessment and Plan (1) Hospice care: Code(s): Z51.5 - Encounter for palliative care Status: Acute Assessment and Plan: Family want to continue with hospice care -Will do 1mg morphine over 1 hour for pain control due to CPR -Continue schedule ativan due to the patient taking xanax BID every day according to son. He states she is very anxious -Tylenol, Dulcolax, atropine drops as needed -Followed by [facility] status (2) Cardiac arrest: Code(s): I46.9 - Cardiac arrest, cause unspecified Status: Acute Assessment and Plan: No further w/u desired by patient's family (3) Dementia: Code(s): F03.90 - Unspecified dementia without behavioral disturbance Status: Acute Assessment and Plan: End stage. At baseline she is a 2x assist and in the wheel chair (4) Anxiety: Code(s): F41.9 - Anxiety disorder, unspecified Status: Acute Assessment and Plan: Continued schedule ativan in addition to PRN ativan since she regularly takes xanax BID at home Time Spent With Patient Time with patient: 25 - 35 minutes Subjective Date/time seen: 07/23/20 10:32 Interval history: Pt is a 85 y/o old here post cardiac arrest. Pt was unresponsive today. spoke with hospice nurse in the room today. No changes. Review of Systems Review of Systems: All systems reviewed & are unremarkable except as noted in HPI and below Exam Narrative: Exam Narrative: General:elderly pt resting in the bed HEENT: normocephalic Neck: supple Resp: shallow breaths with rhonchi with a RR 3 Heart:RRR today with occasional extra beats Abd: Soft, nontender. No pain to palpation. Positive bowel sounds Skin: Warm and dry Extremities: No swelling, erythema or pain to palpation Neuro: pupils reactive. Does not follow commands Objective Data Vital Signs Vital Signs: Vital Signs - 24 hr 07/22/20 13:41 07/22/20 13:50 07/22/20 14:01 Temperature 97.1 F L Pulse Rate 65 59 L 59 L Respiratory Rate 16 15 Blood Pressure 132/55 L 121/71 Pulse Oximetry 99 97 07/22/20 14:16 07/22/20 14:46 07/22/20 15:01 Temperature 97.0 F L Pulse Rate 46 L 56 L 59 L Respiratory Rate 17 16 14 Blood Pressure 126/57 L 154/60 H 154/67 H Pulse Oximetry 100 100 100 07/22/20 16:01 07/22/20 16:30 07/22/20 18:00 Temperature 97.8 F Pulse Rate 54 L 40 L Respiratory Rate 22 H 14 Blood Pressure 146/79 H 147/63 H Pulse Oximetry 94 94 98 07/22/20 20:00 07/22/20 22:00 07/23/20 03:35 Temperature 96.5 F L Pulse Rate 62 57 L 55 L Respiratory Rate 12 Blood Pressure 111/47 L Pulse Oximetry 90 91 98 07/23/20 04:00 07/23/20 07:45 Temperature Pulse Rate 55 L Respiratory Rate 12 Blood Pressure Pulse Oximetry 90 90 Meds/Results Medications: Active Medications Generic Name Dose Route Start Last Admin Trade Name Freq PRN Reason Stop Dose Admin Acetaminophen 650 mg 07/22/20 14:42 Acetaminophen 650 Mg Suppository RECTAL Q6H PRN Mild Pain (1-3) or Fever Artificial Tears 1 drop 07/22/20 14:42 07/22/20 15:49 Artificial Tears Op Soln 15 Ml Bottle EACH EYE 1 drop Q4H PRN Administration Dry Eye(s) Atropine Sulfate 3 drop 07/22/20 17:51 Atropine Sulfate 1% Ophth Soln 5 Ml Bottle SUBLINGUAL Q4H PRN Secretions Morphine Sulfate 50 mg/ Sodium 100 mls @ 2 mls/hr 07/22/20 14:45 07/22/20 15:44 Chloride IV CONT 1 mg/hr .Q24H SURYA 2 mls/hr Administration 1 MG/HR Lorazepam 0.5 mg 07/22/20 16:46 Lorazepam Inj (*Crx) 2 Mg/Ml Vial IV PUSH Q2H PRN Anxiety Lorazepam 0.5 mg 07/22/20 17:00 07/23/20 08:48 Lorazepam Inj (*Crx) 2 Mg/Ml Vial IV PUSH 0.5 mg BID SURYA Administration Quality VTE Prophylaxis VTE prophylaxis: mechanical ordered
[2020-07-23 13:28] VITALS: BP 115/48; PULSE 64; RESP 4; TEMP 36.7; O2SAT 100
[2020-07-23] MEDS: MORPHINE SULFATE INJ (*CRX) 50 MG in SODIUM CHLORIDE 0.9% IV 95 ML IV CONT (14:56)
[2020-07-23 20:00] VITALS: O2SAT 90
[2020-07-23 21:47] VITALS: BP 101/80; PULSE 92; RESP 7; TEMP 37.1; O2SAT 99
[2020-07-24] MEDS: LORazepam INJ (*CRX) 2 MG/ML VIAL 0.5 MG IV PUSH ×2 (07:48→17:00)
[2020-07-24 07:53] VITALS: O2SAT 99
[2020-07-24 09:48] VITALS: O2SAT 98
--- NOTE | 2020-07-24 11:26 | PM.IMPN ---
Progress Note: A&P Assessment and Plan (1) Hospice care: Code(s): Z51.5 - Encounter for palliative care Status: Acute Assessment and Plan: Family want to continue with hospice care -Will do 1mg morphine over 1 hour for pain control due to CPR -Continue schedule ativan due to the patient taking xanax BID every day according to son. He states she is very anxious at baseline -Tylenol, Dulcolax, atropine drops as needed -Followed by [facility] status -Son requested CC to reach out since he had questions about hospice i'm unable to answer (next facility, payment, etc). (2) Cardiac arrest: Code(s): I46.9 - Cardiac arrest, cause unspecified Status: Acute Assessment and Plan: No further w/u desired by patient's family (3) Dementia: Code(s): F03.90 - Unspecified dementia without behavioral disturbance Status: Acute Assessment and Plan: End stage. At baseline she is a 2x assist and in the wheel chair (4) Anxiety: Code(s): F41.9 - Anxiety disorder, unspecified Status: Acute Assessment and Plan: Continued schedule ativan in addition to PRN ativan since she regularly takes xanax BID at home Subjective Date/time seen: 07/24/20 11:26 Interval history: Pt is a 85 y/o old here post cardiac arrest. Pt was unresponsive today. spoke with son at bedside about plan of care. No new events according to nursing staff. Exam Narrative: Exam Narrative: General:elderly pt resting in the bed in NAD HEENT: dry mucus membranes Resp: shallow breaths with rhonchi with a RR 10 Heart:RRR today with occasional extra beats Abd: Soft, nontender. No pain to palpation. Positive bowel sounds Skin: Warm and dry Extremities: No swelling, erythema or pain to palpation Neuro: pupils reactive. Does not follow commands Objective Data Vital Signs Vital Signs: Vital Signs - 24 hr 07/23/20 13:28 07/23/20 20:00 07/23/20 21:47 Temperature 98.1 F 98.8 F Pulse Rate 64 92 Respiratory Rate 4 L 7 L Blood Pressure 115/48 L 101/80 Pulse Oximetry 100 90 99 07/24/20 07:53 07/24/20 09:48 Temperature Pulse Rate Respiratory Rate Blood Pressure Pulse Oximetry 99 98 Intake/Output Intake/Output: Intake & Output 07/21/20 07/22/20 07/23/20 07/24/20 23:59 23:59 23:59 23:59 Intake Total 100 0 Balance 100 0 Meds/Results Medications: Active Medications Generic Name Dose Route Start Last Admin Trade Name Freq PRN Reason Stop Dose Admin Acetaminophen 650 mg 07/22/20 14:42 Acetaminophen 650 Mg Suppository RECTAL Q6H PRN Mild Pain (1-3) or Fever Artificial Tears 1 drop 07/22/20 14:42 07/22/20 15:49 Artificial Tears Op Soln 15 Ml Bottle EACH EYE 1 drop Q4H PRN Administration Dry Eye(s) Atropine Sulfate 3 drop 07/22/20 17:51 Atropine Sulfate 1% Ophth Soln 5 Ml Bottle SUBLINGUAL Q4H PRN Secretions Morphine Sulfate 50 mg/ Sodium 100 mls @ 2 mls/hr 07/22/20 14:45 07/23/20 14:56 Chloride IV CONT 1 mg/hr .Q24H SURYA 2 mls/hr Administration 1 MG/HR Lorazepam 0.5 mg 07/22/20 16:46 Lorazepam Inj (*Crx) 2 Mg/Ml Vial IV PUSH Q2H PRN Anxiety Lorazepam 0.5 mg 07/22/20 17:00 07/24/20 07:48 Lorazepam Inj (*Crx) 2 Mg/Ml Vial IV PUSH 0.5 mg BID SURYA Administration Quality VTE Prophylaxis VTE prophylaxis: mechanical ordered
[2020-07-24 14:00] VITALS: BP 50/35; PULSE 104; RESP 6; TEMP 36; O2SAT 85
[2020-07-24] MEDS: MORPHINE SULFATE INJ (*CRX) 50 MG in SODIUM CHLORIDE 0.9% IV 95 ML IV CONT (14:30)
[2020-07-24 20:00] VITALS: BP 88/56; PULSE 70; RESP 5; TEMP 37.7; O2SAT 99
--- NOTE | 2020-07-25 07:30 | PM.DDS ---
Discharge Sum: Prov Provider Primary care physician: Niki Butler, QUALITY IMPROVEMENT COORDINATOR (RN)- Admitting provider: Constantin Tian MD Attending physician on admission: Casi Cowan Discharge Sum: Diag Contributing Factors (1) Hospice care: (2) Cardiac arrest: (3) Dementia: (4) Anxiety: Discharge Sum: Summary Date and Time Date of admission: 07/22/20 14:42 Date of : 07/25/20 Time of : 01:05 Summary Details: Patient is an 85-year-old female who was on hospice care due to dementia and decreasing mobility who presented emergency room by EMS due to cardiac arrest. For unclear reasons, the nursing facility started CPR and before they realized she was DNR, they had return of spontaneous circulation. In the ER she was minimally responsive. Two sons at bedside stated they wanted to continue with hospice and wanted no further workup. Treatment was based on pain control. She was admitted under hospice GI P status and 07/25/20 1:05. Additional Data Attending physician: Daniela Chan PA-C Was code activated?: No Autopsy requested?: No fraud examiner notified?: Yes Organ bank notified?: Yes Advance directives: Yes Hospice patient?: Yes
--- OUTSIDE RECORDS SUMMARY | 2020-07-27 12:59 | XMS_ITS ---
:1935 Author Care Team Providers Name Role Phone KELLEY JOHNSON MD Fire Control Technician [phone] [facility] OTHER [phone] Allergies Code Code System Name Reaction [...] Completed ? 03/06 ciprofloxacin 500 mg tablet Active ? Not available divalproex 125 mg capsule,delayed Active ? Not available release sprinkle divalproex 250 mg tablet,delayed release Completed ? 04/19/2020 Take 1 tablet every day by oral route in the evening for 90 day s.
--- OUTSIDE RECORDS SUMMARY | 2020-07-27 12:59 | XMS_ITS | Encounter Summary ---
:1935 Author Care Team Providers Name Role Phone John Duran MD Sanitation Laborer [phone] [place] [facility] [place] OTHER [phone] Reason for Visit Follow Up Assessment [...] available. Plan of Care Reminders Provider Appointments None ? ? recorded. Lab CMP, Serum Precis ion or Plasma 05/29/2020 Laboratory
--- OUTSIDE RECORDS SUMMARY | 2020-07-27 12:59 | XMS_ITS | Encounter Summary ---
:1935 Author Care Team Providers Name Role Phone John Duran MD Administrative Job Titles [phone] [place] [facility] [place] OTHER [phone] Reason for Visit Follow Up Assessment [...]
--- OUTSIDE RECORDS SUMMARY | 2020-07-27 12:59 | XMS_ITS | Encounter Summary ---
:1935 Author Care Team Providers Name Role Phone John Duran MD Automatic Pinsetter Adjuster [phone] [place] [facility] [place] OTHER [phone] Reason for Visit Follow Up Assessment and Plan Assessment Note Medication Changes D/C Morphine D/C Bisacodyl D/C Hyoscyamine D/C Lorazepam D/C Zofran Faxed d/c medications to [facility]. Labs ordered to check levels and sent to [facility] Will check kidneys to determine if Eliqu [...] [facility] and [facility] with patient. Patient to [...]
== END 2020-07-25 01:05 | disposition expired | DRG 951 ==
LOC: ANHED 15:43 → ANH3MEDSUR 07-23 07:32
PROVIDERS: Admitting Provider Internal Medicine; Emergency Provider Emergency Medicine; PCP Nurse Practitioner Family; Visit Provider Physician Assistant
DX: Z51.5 Encounter for palliative care (principal); I46.9 Cardiac arrest, cause unspecified; F03.90 Unspecified dementia, unspecified severity, without behavioral disturbance, psychotic disturbance, mood disturbance, and anxiety; F41.9 Anxiety disorder, unspecified; Z66 Do not resuscitate; I25.10 Atherosclerotic heart disease of native coronary artery without angina pectoris; I48.91 Unspecified atrial fibrillation; E03.9 Hypothyroidism, unspecified; I10 Essential (primary) hypertension; I25.2 Old myocardial infarction; Z87.891 Personal history of nicotine dependence
CPT/HCPCS: 93005; 99285; A9270; J2060; J2270